=== PATIENT | female | born 1985 | race African-American/Black ===

== ENCOUNTER 2023-06-28 16:33 | Emergency (ER) | payer OTHER ==
[2023-06-28 17:04] VITALS: BP 142/90; PULSE 92; RESP 16; TEMP 99.5; BMI 35.7
[2023-06-28] MEDS ORDERED: IBUPROFEN 600 MG TABLET (FP) PO ONE (19:39)
[2023-06-28] MEDS: IBUPROFEN 600 MG TABLET (FP) PO ONE (19:41)
== END 2023-06-28 19:45 | disposition home or self-care (01) ==
LOC: FER 16:33
DX: O03.9 Complete or unspecified spontaneous abortion without complication (principal)
CPT/HCPCS: 36415; 76817-TC; 84702; 86850; 86900; 86901; 99284-25

== ENCOUNTER 2023-06-30 19:24 | Emergency (ER) | payer OTHER ==
[2023-06-30 19:45] VITALS: BP 140/92; PULSE 83; RESP 18; TEMP 99.1; BMI 35.6
== END 2023-06-30 21:51 | disposition home or self-care (01) ==
LOC: FER 19:24
DX: O04.80 (Induced) termination of pregnancy with unspecified complications (principal)
CPT/HCPCS: 36415; 84702; 99283-25